=== PATIENT | male | born 2000 | race Caucasian/White ===

== ENCOUNTER 2022-12-12 20:54 | Emergency (ER) | payer MEDICAID, SELFPAY ==
[2022-12-12 21:44] VITALS: BP 112/70; PULSE 66; RESP 18; TEMP 36.8; O2SAT 99; BMI 20.4
--- NOTE | 2022-12-13 01:48 | ED.GENADULT ---
HPI - General Adult General Chief complaint: Extremity Injury, Lower Stated complaint: right ankle pain inj Time Seen by Provider: 12/13/22 01:05 Source: patient, RN notes reviewed and old records reviewed Mode of arrival: wheelchair Limitations: no limitations History of Present Illness HPI narrative: 22-year-old male presents for evaluation of right ankle pain. Patient reports he was playing basketball when he landed awkwardly on his right ankle. he describes an inversion injury and fell to the ground. Denies hitting his head or losing consciousness. He complains of sharp, 10/10 pain reports he is unable to bear weight on his right side Related Data Previous Rx's Medication Instructions Recorded ibuprofen 600 mg tablet 600 mg PO Q6H PRN pain #20 tabs 12/13/22 Allergies Allergy/AdvReac Type Severity Reaction Status Date / Time No Known Allergies Allergy Unverified 02/27/20 17:06 Review of Systems Musculoskeletal: Musculoskeletal: Reports arthralgias, Reports joint swelling and Reports limited range of motion PMFSH Social History Social History Alcohol intake: never Smoked in Last 30 Days: No Use of substances other than those prescribed or required for medical reasons: No Advance Directives: No Advance Directives Information Provided: Yes Physical Exam ED Vital Signs: Vital Signs - 24 hr 12/12/22 21:44 Temperature 98.3 F Pulse Rate 66 Respiratory Rate 18 Blood Pressure 112/70 Pulse Oximetry 99 Oxygen Delivery Method Room Air BMI result Body Mass Index 20.4 Const General: healthy appearing, comfortable, no acute distress, alert and awake Nutritional Appearance: well nourished Orientation/consciousness: patient oriented x3 HENMT Head: Yes normocephalic and Yes atraumatic Eyes Eyelids: Yes eyelids normal Conjunctivae: conjunctivae normal Sclerae: sclerae normal Corneas: corneas normal Pupils: Equal, round and reactive pupils present EOM: EOMs intact bilaterally Neck Neck: Yes full ROM Resp Effort & Inspection: normal respiratory effort, able to speak in complete sentences and not labored Skin General skin exam: no rashes or lesions noted and elasticity normal Neuro General: patient oriented x3 Cranial nerves: Yes Equal, round and reactive pupils present and Yes Bilaterally intact EOM present Cognition (Neuro): normal cognition Extrem Other: Patient has significant edema over the right lateral malleolus. He is tender to palpation to this entire area including the talofibular ligament. He has limited range of motion of the right ankle. No left medial malleolus tenderness. Distal sensation and capillary refill intact Medical Decision Making Medical Decision Making MDM Narrative: Patient has a right ankle injury, x-rays negative for fracture. He was given crutches, Aircast. He is given 1 dose of oxycodone ER but we discharged with ibuprofen. He will follow-up with his PCP. His friend driving Differential Diagnosis Ankle sprain Ankle fracture Dislocation Contusion Ligamentous injury Independent Interpretation I performed an independent interpretation of an: Plain X-Ray (No acute fracture or dislocation of the right ankle) Discharge Plan Discharge Clinical Impression: Ankle sprain and strain Patient Disposition: Home, Self-Care Instructions: Ankle Sprain (ED) Additional Instructions: Use ibuprofen and Tylenol as needed for her pain. Elevate her leg above her heart while resting. Apply ice to the area every 4 hours for 10-15 minutes for at least 2 days Follow-up with your primary doctor Prescriptions: New ibuprofen 600 mg tablet 600 mg PO Q6H PRN (Reason: pain) Qty: 20 0RF Stand Alone Forms: Work/School Release
[2022-12-13 01:57] VITALS: BP 107/70; PULSE 70; RESP 16; O2SAT 99
== END 2022-12-13 02:05 | disposition home or self-care (01) ==
PROVIDERS: Emergency Provider Emergency Medicine
DX: S93.401A Sprain of unspecified ligament of right ankle, initial encounter (principal); X58.XXXA Exposure to other specified factors, initial encounter; Y93.67 Activity, basketball; Y92.9 Unspecified place or not applicable; Y99.9 Unspecified external cause status; M25.571 Pain in right ankle and joints of right foot
CPT/HCPCS: 73600; 73620; 99283; 99284

== ENCOUNTER 2023-05-10 09:05 | Outpatient (REF) | payer MEDICAID, SELFPAY ==
--- NOTE | ~2023-05-10 | US_ITS ---
EXAMINATION: US RETROPERITONEAL LIMITED (RENAL ONLY) CLINICAL INFORMATION: Right lower quadrant pain. Microhematuria. COMPARISON: Ultrasound abdomen limited 12/21/2019. TECHNIQUE: Real-time imaging of the kidneys. FINDINGS: RIGHT KIDNEY: 10.7 x 3.7 x 5.6 cm (SAG x AP x TRV). The kidney is normal in size, contour, and echogenicity. Renal cortical thickness is normal. No calculi or focal parenchymal lesions. No hydronephrosis. LEFT KIDNEY: 10.6 x 6.0 x 6.0 cm (SAG x AP x TRV). The kidney is normal in size, contour, and echogenicity. Renal cortical thickness is normal. No calculi or focal parenchymal lesions. No hydronephrosis. US/US renal BI IMPRESSION: No renal calculus or hydronephrosis.
== END 2023-05-10 09:06 | disposition home or self-care (01) ==
LOC: HO.HMGCX 09:05
PROVIDERS: Visit Provider Internal Medicine
DX: R10.31 Right lower quadrant pain (principal)
CPT/HCPCS: 76775